=== PATIENT | female | born 1955 | race Caucasian/White ===

== ENCOUNTER 2022-07-16 19:03 | Inpatient (IN) ==
[2022-07-16] MEDS ORDERED: 0.9 % SODIUM CHLORIDE 1,000 ML IV ONE ×2 (19:07→20:01)
--- NOTE | 2022-07-16 19:57 | Emergency Department Note ---
Female Urogenital HPI General Chief complaint: Urogenital-Female Stated complaint: sepsis Source: patient Mode of arrival: wheelchair Limitations: no limitations History of Present Illness HPI Narrative: Narrative: Patient presents to the ED with complaints of not feeling well x2 days. She thinks that she has a urinary tract infection because the cell she felt the last time she had a urinary tract infection when she was sepsis. Patient reports she just feels off and dizzy disoriented. She states that she is having some visual hallucinations although she cannot describe to me she states that she just saying things are not really there. She states that she became dizzy and fell backwards last night she think she hit her head but cannot recall. She cannot tell me if she lost consciousness or not. She is not on any blood thinners. She does take lisinopril for hypertension. She reports decreased appetite and oral intake over the last couple days as well. She states that she had some chills. She denies fever, vomiting, hematemesis, cardiac chest pain, heart palpitation, shortness of breath, cough, sputum production, abdominal pain, diarrhea, dysuria, urinary frequency. She did state that she had a sudden urge to pee yesterday and peed on herself. She denies any back pain, bowel incontinence, extremity weakness or numbness. Patient denies any other alleviating or aggravating factors. Related Data Allergies Allergy/AdvReac Type Severity Reaction Status Date / Time hydromorphone [From Dilaudid] AdvReac Intermediate Confusion Verified 06/30/22 11:55 Review of Systems ROS ROS Narrative: Narrative: All systems ED: reviewed and negative except as stated. [facility] Narrative Patient History Narrative: Narrative: Medical/Surgical/Family History All Active Problems (Updated 07/16/22 @ 21:04 by Aditya Beltre DO) Chest pain (Acute) Hypertension (Acute) Lightheadedness (Acute) Acute dehydration (Acute) Acute UTI (Acute) Acute hypotension (Acute) Concussion (Acute) Social History Smoking Status: Never smoker Exam Narrative Narrative: Narrative: General Limitations: no limitations General appearance: Absent in distress Head Head: Present atraumatic and normocephalic Eye Eye: Present PERRL and EOMI ENT ENT: Present normal oropharynx and mucous membranes dry Neck Neck: Present normal inspection; Absent meningismus Respiratory Respiratory: Present normal lung sounds bilaterally; Absent respiratory distress Cardiovascular Cardiovascular: Present regular rate and normal rhythm Adbominal Abdominal: Present soft; Absent tenderness Extremities Extremities: Present normal capillary refill Back Back: Absent CVA tenderness (R) or CVA tenderness (L) Neurological Neurological: Present alert and oriented X3 Psychiatric Psychiatric: Present normal affect and normal mood Skin Skin: Present warm (WNL) and intact Course Course Course Narrative: Patient was evaluated for weakness and concerns of UTI. UA was dirty. Labs show that she had elevated white cell count, elevated lactic acid elevated procalcitonin she was hypotensive. Believe patient to be septic. She was given IV fluids and her blood pressure responded appropriately. Her lactic acid also trended down. Labs also show that she was dehydrated with elevated BUN and creatinine which would explain her hypotension. Patient also reported a fall with possible head trauma with headache so a CT of the head was obtained as well as cervical spine with image reviewed myself with no acute intracranial findings or bony abnormalities. Patient was able to ambulate but was a little bit unsteady on her feet. I believe patient would benefit from hospital admission. Case was discussed with hospitalist who has agreed to admit the patient. Plan of care was discussed with patient she expressed verbal understanding and agreement. Reevaluation(s) Reevaluation #1: Patient remains hemodynamically stable. No new complaints at this time. Time: 20:01 Consultations Consultation #1: Case discussed with hospitalist, , who has Jackie excepted to admit patient to the hospital. Time: 21:10 Vital Signs Vital signs: Vital Signs Temperature 97.0 F 07/16/22 19:03 Pulse Rate 59 L 07/16/22 19:03 Respiratory Rate 14 07/16/22 19:03 Blood Pressure 66/45 07/16/22 19:03 Pulse Oximetry (%) 100 07/16/22 19:03 Oxygen Delivery Method Room Air 07/16/22 19:03 Temperature 97.0 F 07/16/22 19:03 Pulse Rate 71 07/16/22 20:46 Respiratory Rate 11 L 07/16/22 20:46 Blood Pressure 108/58 07/16/22 20:46 Pulse Oximetry (%) 96 07/16/22 20:46 Oxygen Delivery Method Room Air 07/16/22 19:03 [facility] Narrative Medical decision making narrative: Narrative: Differential Diagnosis Differential Diagnosis: Sepsis, UTI, viral illness, hypotension, dehydration Medical Records Medical records reviewed: Yes I reviewed the patient's medical records. Lab Data Lab results reviewed: Yes I reviewed the patient's lab results. 07/16/22 19:30 Labs: Lab Results 07/16/22 07/16/22 07/16/22 Range/Units 19:30 19:30 19:35 WBC 11.9 H (4.5-11.0) K/mcL RBC 4.67 (3.59-5.38) M/mcL Hgb 14.4 (11.2-15.7) g/dL Hct 42.1 (34.1-44.9) % MCV 90.1 (80.0-100.0) fL MCH 30.8 (26.0-34.0) pg MCHC 34.2 (31.0-36.0) g/dL RDW 13.2 (11.5-14.5) % Plt Count 146 (140-440) K/mcL MPV 10.2 (8.8-12.5) fL Immature Gran % (Auto) 0.3 (0.0-0.5) % Neut % (Auto) 72.3 (38.0-78.0) % Lymph % (Auto) 15.6 (15.5-49.0) % [place] % (Auto) 11.4 (1.0-12.0) % Eos % (Auto) 0.2 (0.0-7.0) % Baso % (Auto) 0.2 (0.0-2.0) % Lymph # (Auto) 1.85 (1.50-4.80) K/mcL [place] # (Auto) 1.36 H (0.10-0.90) K/mcL Eos # (Auto) 0.02 (0.00-0.70) K/mcL Baso # (Auto) 0.02 (0.00-0.30) K/mcL Immature Gran # 0.04 (0.00-0.05) K/mcl Absolute Neutrophils 8.59 H (1.80-8.00) K/mcL Procalcitonin 0.65 H (<0.10) ng/mL Urine Color Savita Urine Appearance Hazy A (Clear) Urine pH 5.0 (5.0-9.0) Ur Specific [place] 1.016 (1.000-1.035) Urine Protein 30 A (Negative) mg/dL Urine Glucose (UA) Negative (Negative) mg/dL Urine Ketones Negative (Negative) mg/dL Urine Occult Blood 0.03 (Negative) mg/dL Urine Nitrate Negative (Negative) Urine Bilirubin Negative (Negative) mg/dL Urine Urobilinogen Negative mg/dL Ur Leukocyte Esterase 250 A (Negative) /uL Urine RBC 1 (0-3) /hpf Urine WBC 35 H (0-4) /hpf Ur Squamous Epith Cells 0 (0-4) /hpf Urine Bacteria Mod A (0) /hpf Hyaline Casts 25 H (0-2) /lph Urine Mucus Few A (None) /hpf Ur Culture Indicated? yes ED POC Tests ED POC Tests: ALCON - Influenza A Negative ALCON - Influenza B Negative ALCON - SARS Antigen Negative Radiology Data Radiology results reviewed: Yes I reviewed the patient's radiology results. Radiology results narrative: CT head cervical spine obtained with image reviewed myself, no acute findings Core Measures AMI Core Measures Followed: Yes Discharge Plan Patient/Caregiver Discharge Instructions Pt seen by TEACHING SUPERVISOR/PA only: No Clinical Impression: Acute dehydration, Acute UTI, Acute hypotension, Concussion Patient Disposition: Xfer As Outpt/Obs ([facility]) Condition: Fair Follow up with: Johanna Clay MD [Primary Care Provider] -
[2022-07-16 20:09] LABS: Basophils # (Auto) 0.02 K/mcL (0.00-0.30); Basophils % (Auto) 0.2 % (0.0-2.0); Eosinophils # (Auto) 0.02 K/mcL (0.00-0.70); Eosinophils % (Auto) 0.2 % (0.0-7.0); Hematocrit 42.1 % (34.1-44.9); Hemoglobin 14.4 g/dL (11.2-15.7); Lymphocytes # (Auto) 1.85 K/mcL (1.50-4.80); Lymphocytes % (Auto) 15.6 % (15.5-49.0); Mean Cell Volume 90.1 fL (80.0-100.0); Mean Corpuscular HGB Conc 34.2 g/dL (31.0-36.0); Mean Platelet Volume 10.2 fL (8.8-12.5); Monocytes # (Auto) 1.36 K/mcL (0.10-0.90); Monocytes % (Auto) 11.4 % (1.0-12.0); Neutrophils % (Auto) 72.3 % (38.0-78.0); Platelet Count 146 K/mcL (140-440); RBC 4.67 M/mcL (3.59-5.38); Red Cell Distribution Width 13.2 % (11.5-14.5); WBC 11.9 K/mcL (4.5-11.0)
[2022-07-16 20:23] LABS: Appearance,Urine HAZY (Clear); Bacteria,Urine MOD /hpf (0); Bilirubin,Urine Negative (Negative); Color,Urine AMBER; Culture Indicated,Urine yes; Glucose,Urine (UA) Negative (Negative); Ketones,Urine Negative (Negative); Leukocyte Esterase,Urine 250 /uL (Negative); Mucus,Urine FEW /hpf; Nitrate,Urine Negative (Negative); Protein,Urine 30 mg/dL (Negative); Specific Gravity,Urine 1.016 (1.000-1.035); Urine Blood 0.03 mg/dL (Negative); Urine Hyaline Cast 25 /lph (0-2); Urine RBC 1 /hpf (0-3); Urine Squamous Epithelial Cell 0 /hpf (0-4); Urine WBC 35 /hpf (0-4); Urobilinogen,Urine Negative
[2022-07-16] MEDS ORDERED: ACETAMINOPHEN 325 MG TABLET PO ONE (20:51)
[2022-07-16] MEDS ORDERED: KETOROLAC 30 MG/ML VIAL IV ONE (20:51)
[2022-07-16] MEDS ORDERED: cefTRIAXone 2 GM in DEXTROSE 5% IN WATER 50 ML IV ONE (20:51)
--- NOTE | 2022-07-16 21:19 | Internal Med History&Physical ---
HPI History of Present Illness Patient information: Note initiated : 07/16/22 at 9:09 pm Service Date, if different from initiated Date: [] Patient: Felecia Hameed a 66 y/o F admitted on for sepsis. Chief Complaint: [] History of present illness: Ms. Hameed is a 66 year old F Presents the ED by her friend found her disoriented incontinent and stated she was seeing things that were not there and stating she was septic. Patient does have history of UTIs. Patient says for the past 3 days she has been feeling ill weak tired dizzy. She been incontinent several times. She says last night she passed out. Patient states her urine has been malodorous. As well as complaint of headache fever and chills. She denies any nausea vomiting abdominal pain chest pain shortness of breath. In the ED if her blood pressure was 66/45. She had good oxygen saturations. She responded well to IV fluid bolus. UA was concerning for infection. Her first VBG showed a pH of 7.33 with a lactate of 2.9. Follow-up showed a VBG of 7.30 with a lactate of 1.2. C-spine and CT brain unremarkable. Patient given IV fluids and started on antibiotics in the ED. Review of Systems: Pertinent positives as above. Denies nausea/vomiting/chest or abdominal pain/cough/dyspnea/diarrhea. Remaining 10 point review of system reviewed negative PFSH PFSH All Active Problems (Updated 07/16/22 @ 21:04 by Aditya Beltre DO) Chest pain (Acute) Hypertension (Acute) Lightheadedness (Acute) Acute dehydration (Acute) Acute UTI (Acute) Acute hypotension (Acute) Concussion (Acute) Social History smoking status: Never smoker MEDS/ALLERGIES Home Medications and Allergies Allergies Allergy/AdvReac Type Severity Reaction Status Date / Time hydromorphone [From Dilaudid] AdvReac Intermediate Confusion Verified 06/30/22 11:55 EXAM Constitutional Vitals: Temp Pulse Resp BP Pulse Ox O2 Del Method 97.0 F 71 11 L 108/58 96 Room Air 07/16/22 19:03 07/16/22 20:46 07/16/22 20:46 07/16/22 20:46 07/16/22 20:46 07/16/22 19:03 Exam: General: Awake, No acute Distress Eyes/N/T: EOMI, PERRL, dry MM Head/Neck: neck supple, normocephalic atraumatic CV: RRR, No murmurs, normal s1/s2 Pulm: Clear b/l, no wheezing/rhonchi/rales Abd: soft, nontender, +BS x4 Ext: no clubbing/cyanosis/edema Neuro: Lethargic, no focal deficits, moves all extremities, CN 2-12 grossly intact, sensations intact b/l upper/lower, Answers questions appropriately. Skin: warm/dry DATA Data Completed and Pending Labs: Labs from last 24 hours 07/16/22 07/16/22 07/16/22 19:35 19:30 19:30 WBC 11.9 H RBC 4.67 Hgb 14.4 Hct 42.1 MCV 90.1 MCH 30.8 MCHC 34.2 RDW 13.2 Plt Count 146 MPV 10.2 Immature Gran % (Auto) 0.3 Neut % (Auto) 72.3 Lymph % (Auto) 15.6 [place] % (Auto) 11.4 Eos % (Auto) 0.2 Baso % (Auto) 0.2 Lymph # (Auto) 1.85 [place] # (Auto) 1.36 H Eos # (Auto) 0.02 Baso # (Auto) 0.02 Immature Gran # 0.04 Absolute Neutrophils 8.59 H Procalcitonin 0.65 H Urine Color Savita Urine Appearance Hazy A Urine pH 5.0 Ur Specific [place] 1.016 Urine Protein 30 A Urine Glucose (UA) Negative Urine Ketones Negative Urine Occult Blood 0.03 Urine Nitrate Negative Urine Bilirubin Negative Urine Urobilinogen Negative Ur Leukocyte Esterase 250 A Urine RBC 1 Urine WBC 35 H Ur Squamous Epith Cells 0 Urine Bacteria Mod A Hyaline Casts 25 H Urine Mucus Few A Ur Culture Indicated? yes A/P Narrative A/P Narrative: A: *UTI: *Severe sepsis w/hypotension: responded to IVF in ED *Lactic acidosis: *Encephalopathy with h/o MCI: 2/2 above *MCI: *DM2: *HTN/HLD: *Depression/PTSD: *Obesity: BMI 30 *GERD: *Chronic pain: On opioids. P: -IV ABX, pending BC/UC -Monitor vitals closely, BP, prn fluid boluses -Monitor I&O/uop, renal fxn -IVF -f/u cbc/chem, pct, lactate - -basal and SSI -hold home ACEI for hypotension -cont psych meds -Home medication reconciliation -PT/OT -CM for placement needs -ppx: Lovenox / ppi Time Spent With Patient Time: Total time spent is greater than 50% in coordination of care (as documented) at patient's floor/unit and/or counseling patient: Initial: Total time with patient: 75 - 90 minutes
[2022-07-16 22:14] LABS: Albumin 3.2 gm/dL (3.2-5.2); Bilirubin,Direct 0.2 mg/dL (<0.3); Bilirubin,Total 0.4 mg/dL (0.1-1.0); Globulin 2.7 gm/dL (2.2-3.7)
[2022-07-16] MEDS ORDERED: 0.9 % SODIUM CHLORIDE 1,000 ML IV SCH (23:04)
[2022-07-16] MEDS ORDERED: POTASSIUM CHLORIDE 20 MEQ TABLET PO PRN ×2 (23:04)
[2022-07-16] MEDS ORDERED: DEXTROSE 31 GM ORAL.SUSP PO PRN (23:04)
[2022-07-16] MEDS ORDERED: MAGNESIUM SULFATE 2 GM/50 ML BAG IV PRN (23:04)
[2022-07-16] MEDS ORDERED: IPRATROPIUM/ALBUTEROL 3 ML AMPUL.NEB NEB PRN (23:04)
[2022-07-16] MEDS ORDERED: DEXTROSE 50% 50 ML VIAL IV PRN (23:04)
[2022-07-16] MEDS ORDERED: POTASSIUM CHLORIDE 40 MEQ in DEXTROSE 5% IN WATER 500 ML IV PRN (23:04)
[2022-07-16] MEDS ORDERED: ONDANSETRON 4 MG/2 ML VIAL IV PRN (23:04)
[2022-07-16] MEDS ORDERED: SENNOSIDES 1 TABLET PO PRN (23:04)
[2022-07-16] MEDS ORDERED: ACETAMINOPHEN 325 MG TABLET PO PRN (23:04)
[2022-07-16] MEDS ORDERED: POLYETHYLENE GLYCOL 3350 17 GM PACKET PO PRN (23:04)
[2022-07-16] MEDS ORDERED: cefTRIAXone 1 GM in DEXTROSE 5% IN WATER 50 ML IV SCH (23:04)
[2022-07-16] MEDS: 0.9 % SODIUM CHLORIDE 10 ML SYRINGE IV SCH (23:14)
[2022-07-17] MEDS ORDERED: GABAPENTIN 100 MG CAPSULE PO ONE (00:36)
[2022-07-17] MEDS ORDERED: HYDROcodone/APAP 10/325MG TABLET PO ONE ×2 (00:37→01:04)
[2022-07-17] MEDS ORDERED: hydrOXYzine 10 MG TABLET PO ONE (00:38)
[2022-07-17] MEDS ORDERED: MONTELUKAST 10 MG TABLET PO ONE (00:43)
[2022-07-17] MEDS ORDERED: metFORMIN 500 MG TABLET PO ONE (00:43)
[2022-07-17] MEDS ORDERED: tiZANidine 4 MG TABLET PO ONE (00:44)
[2022-07-17] MEDS: GABAPENTIN 300 MG CAPSULE ONE ×2 (01:11→01:17)
--- NOTE | 2022-07-17 05:05 | Cat Scan Report ---
INDICATION: fall COMPARISON: None. TECHNIQUE: Axial noncontrast-enhanced images through the brain. Sagittally and coronally reformatted images. FINDINGS: Cerebral hemispheres:Negative. No intra-axial abnormality. No intra-axial hematoma. No localized mass effect.Brain volume is within normal limits for age. Periventricular white matter is negative without significant attenuation abnormality. Brainstem and cerebellum:No intra-axial abnormality Extra-axial:No acute hemorrhage. No subdural or epidural hematoma. No subarachnoid hemorrhage. Basilar cisterns are normal Calvarial:No calvarial fracture. No lytic lesion Temporal bones are negative. No destructive lesions Soft tissue, orbits, sinuses:Orbits and visualized facial soft tissues and paranasal sinuses are negative IMPRESSION: Negative post trauma noncontrast enhanced brain CT scan The exam was performed using radiation dose optimization techniques including, but not limited to, automated exposure control, adjustment of the mA and/or kV according to patient size and use of iterative reconstruction technique. Interpreted and Authenticated by: Reji Ortiz 07/17/22
--- NOTE | 2022-07-17 05:07 | Cat Scan Report ---
INDICATION: fall COMPARISON: None. TECHNIQUE: Axial thin section images through the cervical spine. Sagittally and coronally reformatted images. The exam was performed using radiation dose optimization techniques including, but not limited to, automated exposure control, adjustment of the mA and/or kV according to patient size and use of iterative reconstruction technique. FINDINGS: Examination was initially interpreted by [facility] Vertebral bodies, spinous processes:No vertebral body or spinous process fracture. No acute abnormality. Alignment is anatomic without anterolisthesis Normal odontoid process. No fracture. Occipital condyles and C1 are negative. No atlantoaxial subluxation. Facets:No perched or locked facet. No facet complex fracture. Disc spaces:Previous anterior discectomy and spinal fusion at C5-6. Normal alignment. Moderate to severe degenerative disc disease at C6-7. Temporal bones:Negative. No basilar skull fracture Cervical soft tissues:Negative. No prevertebral soft tissue swelling. No focal soft tissue mass or acute abnormality Lung apices:No pneumothorax. No pulmonary contusion. IMPRESSION: 1. Previous anterior discectomy and spinal fusion at C5-6. 2. No acute abnormality. No cervical spine fracture Interpreted and Authenticated by: Reji Ortiz 07/17/22
[2022-07-17] MEDS: INSULIN LISPRO 1 UNIT/0.01 ML UNIT SQ SCH ×4 (07:24→21:37)
[2022-07-17] MEDS: 0.9 % SODIUM CHLORIDE 10 ML SYRINGE IV SCH ×3 (07:24→21:48)
--- NOTE | 2022-07-17 07:29 | Internal Med Progress Note ---
SUBJECTIVE Subjective Patient information: Note initiated : 07/17/22 at 7:28 am Service Date, if different from initiated Date: [] Patient: Felecia Hameed 66 y/o F admitted on 07/16/22 for sepsis. Chief Complaint: [] Interval history: History of present illness: Ms. Hameed is a 66 year old F Presents the ED by her friend found her disoriented incontinent and stated she was seeing things that were not there and stating she was septic. Patient does have history of UTIs. Patient says for the past 3 days she has been feeling ill weak tired dizzy. She been incontinent several times. She says last night she passed out. Patient states her urine has been malodorous. As well as complaint of headache fever and chills. She denies any nausea vomiting abdominal pain chest pain shortness of breath. In the ED if her blood pressure was 66/45. She had good oxygen saturations. She responded well to IV fluid bolus. UA was concerning for infection. Her first VBG showed a pH of 7.33 with a lactate of 2.9. Follow-up showed a VBG of 7.30 with a lactate of 1.2. C-spine and CT brain unremarkable. Patient given IV fluidsand abx started in ED. 07/17 Patient seems to feel little bit better today.'s complaints of chills and headache. Leukocytosis improved. Chemistry pending. Pending urine culture Review of Systems: denies fever/nausea/vomiting/chest or abdominal pain/cough/dyspnea/diarrhea. Otherwise see above. Constitutional Vitals: Vital Signs Temp Pulse Resp BP Pulse Ox O2 Del Method O2 Flow Rate 97.2 F 63 14 128/72 96 Room Air 0 07/17/22 04:03 07/17/22 04:13 07/17/22 04:13 07/17/22 04:03 07/17/22 04:13 07/17/22 04:03 07/17/22 04:03 Period Temp Pulse Resp BP Sys/Judd Pulse Ox O2 Del Method O2 Flow Rate Last 24 Hr 97.0 F-98.2 F 59-73 5-15 66-130/45-75 90-100 Room Air-Room Air 0-0 Intake and Output 07/16/22 07/17/22 07/17/22 19:59 03:59 11:59 Intake Total 2049 Output Total 460 Balance 1590 Weight 72.575 kg 72.076 kg Intake & Output: Intake & Output 07/16/22 07/17/22 07/17/22 19:59 03:59 11:59 Intake Total 2049 Output Total 460 Balance 1590 Weight 72.575 kg 72.076 kg Intake: IV 2049 Sodium Chloride 0.9% 1,000 ml @ 2000 Wide Open IV BOLUS ONE Rx#: [id number] Rocephin 2 gm In Dextrose 5% in 50 Water 50 ml @ 100 mls/hr IV ONCE ONE Rx#:[id number] Output: Void Amount 460 Other: Meal snack Percent of Meal Consumed 100% Nourishment/Supplement name Yogurt, egg salad Urine Appearance Clear Urine Color Dark Yellow Urine Odor Strong Exam: General: Awake, No acute Distress Eyes/N/T: EOMI, Head/Neck: neck supple, CV: RRR, No murmurs, Pulm: Clear b/l, no wheezing/rhonchi/rales Abd: soft, nontender, +BS x4 Ext: no clubbing/cyanosis/edema Neuro: alert, no focal deficits, moves all extremities,questions appropriately. Skin: warm/dry OBJ DATA Labs 07/16/22 19:30 07/17/22 05:05 Labs: Abnormal Lab Results 07/16/22 07/16/22 07/16/22 21:09 21:07 19:35 WBC [place] # (Auto) Absolute Neutrophils POC VBG pH 7.30 L POC VBG HCO3 22.6 L POC VBG Total CO2 24.0 L POC VBG Base Excess -4.0 L AST 68 H ALT 79 H Procalcitonin Urine Appearance Hazy A Urine Protein 30 A Ur Leukocyte Esterase 250 A Urine WBC 35 H Urine Bacteria Mod A Hyaline Casts 25 H Urine Mucus Few A 07/16/22 07/16/22 19:30 19:30 WBC 11.9 H [place] # (Auto) 1.36 H Absolute Neutrophils 8.59 H POC VBG pH POC VBG HCO3 POC VBG Total CO2 POC VBG Base Excess AST ALT Procalcitonin 0.65 H Urine Appearance Urine Protein Ur Leukocyte Esterase Urine WBC Urine Bacteria Hyaline Casts Urine Mucus Meds: Medications Acetaminophen (Acetaminophen 325 Mg Tablet) 650 mg PO Q6HP PRN; Protocol PRN Reason: Per Pain Protocol/Fever > 101 Albuterol/Ipratropium (Ipratropium/Albuterol 3 Ml Ampul.Neb) 3 ml NEB Q4HP PRN PRN Reason: Shortness Of Breath Ceftriaxone Sodium (Ceftriaxone 1 Gm Vial) 1 gm IV Q24H [facility] Dextrose (Dextrose 50% 50 Ml Vial) 0 ml IV UD PRN PRN Reason: Per Sliding Scale Diagnostic Test (Pha) (Accu-Chek 1 Each Strip) [address] [facility] Last Admin: 07/17/22 07:24 Dose: 1 each Docusate Sodium (Docusate Sodium 100 Mg Capsule) 100 mg PO BID MARTHA Enoxaparin Sodium (Enoxaparin 40 Mg/0.4 Ml Syringe) 40 mg SQ DAILY [facility] Glucose (Dextrose 31 Gm Oral.Susp) 15 gm PO PRN PRN PRN Reason: Hypoglycemia Potassium Chloride 40 meq/ (Dextrose) 520 mls @ 130 mls/hr IV UD PRN PRN Reason: Potassium < 3 Magnesium Sulfate (Magnesium Sulfate) 2 gm in 50 mls @ 50 mls/hr IV UD PRN PRN Reason: Magnesium </= 1.6 Sodium Chloride (Sodium Chloride 0.9%) 1,000 mls @ 75 mls/hr IV .[id number] [facility] Stop: 07/17/22 12:23 Last Admin: 07/16/22 23:00 Dose: 75 mls/hr Insulin Human Lispro (Insulin Lispro 1 Unit/0.01 Ml Unit) [address] [facility]; Protocol Last Admin: 07/17/22 07:24 Dose: Not Given Ondansetron HCl (Ondansetron 4 Mg/2 Ml Vial) 4 mg IV Q4HP PRN PRN Reason: Nausea And Vomiting Polyethylene Glycol (Polyethylene Glycol 3350 17 Gm Packet) 17 gm PO DAILYP PRN PRN Reason: Constipation Potassium Chloride (Potassium Chloride 20 Meq Tablet) 40 meq PO UD PRN PRN Reason: Potssium is 3-3.5 Potassium Chloride (Potassium Chloride 20 Meq Tablet) 40 meq PO UD PRN PRN Reason: Potassium < 3 Senna (Sennosides 1 Tablet) 2 tab PO DAILYP PRN PRN Reason: Constipation Sodium Chloride (0.9 % Sodium Chloride 10 Ml Syringe) 10 ml IV Q8 [facility] Last Admin: 07/17/22 07:24 Dose: Not Given A/P Narrative A/P Narrative: A: *UTI( ): *Severe sepsis w/hypotension: responded to IVF in ED *Lactic acidosis: *TARA on likely CKDIII: *Encephalopathy with h/o MCI: 2/2 above, improved *MCI: *DM2: *HTN/HLD: *Depression/PTSD: *Obesity: BMI 30 *GERD: *Chronic back pain: On opioids. *Transaminitis, mild: P: -IV ABX, pending BC/UC -Monitor vitals closely, BP, prn fluid boluses -Monitor I&O/uop, renal fxn -IVF -f/u cbc/chem, pct, lactate -basal(decrease home dose today) and SSI -hold home ACEI for hypotension -cont psych meds -PT/OT -CM for placement needs -ppx: Lovenox / ppi Time Spent With Patient Time: Total time spent is greater than 50% in coordination of care (as documented) at patient's floor/unit and/or counseling patient: Subsequent: Total time with patient: 50 - 65 Minutes QUALITY VTE Deep Vein Thrombosis/Pulmonary Embolism Present on Admission: No
[2022-07-17] MEDS: GABAPENTIN 300 MG CAPSULE PO SCH ×2 (08:03→21:38)
[2022-07-17] MEDS: LISINOPRIL 2.5 MG TABLET PO SCH (08:03)
[2022-07-17] MEDS: tiZANidine 4 MG TABLET PO SCH ×3 (08:03→21:39)
[2022-07-17] MEDS: OMEPRAZOLE 20 MG CAPSULE PO SCH ×2 (08:04→16:51)
[2022-07-17] MEDS: ENOXAPARIN 40 MG/0.4 ML SYRINGE SQ SCH (08:04)
[2022-07-17 08:07] LABS: Basophils # (Auto) 0.02 K/mcL (0.00-0.30); Basophils % (Auto) 0.3 % (0.0-2.0); Eosinophils # (Auto) 0.13 K/mcL (0.00-0.70); Eosinophils % (Auto) 2.1 % (0.0-7.0); Hematocrit 37.9 % (34.1-44.9); Hemoglobin 12.5 g/dL (11.2-15.7); Lymphocytes # (Auto) 1.72 K/mcL (1.50-4.80); Lymphocytes % (Auto) 27.8 % (15.5-49.0); Mean Cell Volume 92.2 fL (80.0-100.0); Mean Platelet Volume 10.5 fL (8.8-12.5); Monocytes # (Auto) 0.84 K/mcL (0.10-0.90); Monocytes % (Auto) 13.6 % (1.0-12.0); Neutrophils % (Auto) 55.9 % (38.0-78.0); Platelet Count 116 K/mcL (140-440); RBC 4.11 M/mcL (3.59-5.38); Red Cell Distribution Width 13.3 % (11.5-14.5); WBC 6.2 K/mcL (4.5-11.0)
[2022-07-17] MEDS: DOCUSATE SODIUM 100 MG CAPSULE PO SCH ×2 (08:07→21:38)
[2022-07-17 08:54] LABS: ALT/SGPT 74 U/L (<40); AST/SGOT 62 U/L (<32); Albumin 3.2 gm/dL (3.2-5.2); Albumin/Globulin Ratio 1.1 (1.0-2.3); Alkaline Phosphatase 84 U/L (39-117); Bilirubin,Direct < 0.2 mg/dL (0-0.3); Bilirubin,Total 0.3 mg/dL (0.1-1.0); Blood Urea Nitrogen 26 mg/dL (8-23); Calcium 8.7 mg/dL (8.6-10.4); Carbon Dioxide 21 mmol/L (22-30); Chloride 104 mmol/L (96-108); Globulin 2.8 gm/dL (2.2-3.7); Glomerular Filtration Rate 43; Glucose 68 mg/dL (70-105); Lactate Dehydrogenase 226 U/L (135-225); Phosphorous 3.5 mg/dL (2.5-4.5); Triglycerides 145 mg/dL (<150); Uric Acid 6.8 mg/dL (2.5-8.0)
[2022-07-17] MEDS ORDERED: INSULIN GLARGINE, HUMAN 1 UNIT/0.01 ML SQ SCH (09:00)
[2022-07-17] MEDS: INSULIN GLARGINE, HUMAN 1 UNIT/0.01 ML SQ SCH ×2 (10:00→21:37)
[2022-07-17] MEDS: HYDROcodone/APAP 10/325MG TABLET PO PRN ×3 (12:25→21:38)
[2022-07-17] MEDS: cefTRIAXone 1 GM VIAL IV SCH (14:30)
[2022-07-17] MEDS: hydrOXYzine 25 MG TABLET PO PRN (18:42)
[2022-07-17] MEDS: MONTELUKAST 10 MG TABLET PO SCH (21:38)
[2022-07-18] MEDS: HYDROcodone/APAP 10/325MG TABLET PO PRN ×3 (04:28→21:29)
[2022-07-18] MEDS: OMEPRAZOLE 20 MG CAPSULE PO SCH ×2 (07:18→17:02)
[2022-07-18] MEDS: INSULIN LISPRO 1 UNIT/0.01 ML UNIT SQ SCH ×4 (07:18→21:38)
[2022-07-18] MEDS: 0.9 % SODIUM CHLORIDE 10 ML SYRINGE IV SCH ×3 (07:22→21:39)
--- NOTE | 2022-07-18 07:39 | Internal Med Progress Note ---
SUBJECTIVE Subjective Patient information: Note initiated : 07/18/22 at 7:38 am Service Date, if different from initiated Date: [] Patient: Felecia Hameed a 66 y/o F admitted on 07/16/22 for sepsis. Chief Complaint: [] Interval history: History of present illness: Ms. Hameed is a 66 year old F Presents the ED by her friend found her disoriented incontinent and stated she was seeing things that were not there and stating she was septic. Patient does have history of UTIs. Patient says for the past 3 days she has been feeling ill weak tired dizzy. She been incontinent several times. She says last night she passed out. Patient states her urine has been malodorous. As well as complaint of headache fever and chills. She denies any nausea vomiting abdominal pain chest pain shortness of breath. In the ED if her blood pressure was 66/45. She had good oxygen saturations. She responded well to IV fluid bolus. UA was concerning for infection. Her first VBG showed a pH of 7.33 with a lactate of 2.9. Follow-up showed a VBG of 7.30 with a lactate of 1.2. C-spine and CT brain unremarkable. Patient given IV fluidsand abx started in ED. 07/17 Patient seems to feel little bit better today.'s complaints of chills and headache. Leukocytosis improved. Chemistry pending. Pending urine culture 07/18 Patient feeling little better today. States she has not been up out of bed yet. Awaiting PT OT. Awaiting urine culture. Pending chemistry. Review of Systems: denies fever/nausea/vomiting/chest or abdominal pain/cough/dyspnea/diarrhea. Otherwise see above. Constitutional Vitals: Vital Signs Temp Pulse Resp BP Pulse Ox O2 Del Method O2 Flow Rate 98.9 F 72 18 157/74 94 Room Air 0 07/18/22 04:45 07/18/22 04:45 07/18/22 04:45 07/18/22 04:45 07/18/22 04:45 07/18/22 04:45 07/18/22 04:45 Period Temp Pulse Resp BP Sys/Judd Pulse Ox O2 Del Method O2 Flow Rate Last 24 Hr 98.0 F-98.9 F 63-73 10-20 111-157/55-92 94-98 Room Air-Room Air 0-0 Intake and Output 07/17/22 07/18/22 07/18/22 19:59 03:59 11:59 Intake Total 1720 Output Total 1550 700 900 Balance 170 -700 -900 Weight 72.076 kg 72.802 kg Intake & Output: Intake & Output 07/17/22 07/18/22 07/18/22 19:59 03:59 11:59 Intake Total 1720 Output Total 1550 700 900 Balance 170 -700 -900 Weight 72.076 kg 72.802 kg Intake: IV 1000 Sodium Chloride 0.9% 1,000 ml @ 1000 75 mls/hr IV .[id number] [facility] Rx#: [id number] Oral 720 Output: Void Amount 1550 700 900 Other: Meal Dinner Percent of Meal Consumed 100% Urine Appearance Clear Clear Clear Urine Color Dark Yellow Dark Yellow Yellow Exam: General: Awake, No acute Distress Eyes/N/T: EOMI, Head/Neck: neck supple, CV: RRR, No murmurs, Pulm: Clear b/l, no wheezing/rhonchi/rales Abd: soft, nontender, +BS x4 Ext: no clubbing/cyanosis/edema Neuro: alert, no focal deficits, moves all extremities,questions appropriately. Skin: warm/dry OBJ DATA Labs 07/17/22 05:05 07/17/22 05:05 Labs: Abnormal Lab Results 07/17/22 07/17/22 07/17/22 05:05 05:05 05:05 WBC Plt Count 116 L [place] % (Auto) 13.6 H [place] # (Auto) Absolute Neutrophils POC VBG pH POC VBG HCO3 POC VBG Total CO2 POC VBG Base Excess Carbon Dioxide 21 L BUN 26 H Creatinine 1.3 H Glucose 68 L GGT 281 H AST 62 H ALT 74 H Lactate Dehydrogenase 226 H Procalcitonin 0.43 H Urine Appearance Urine Protein Ur Leukocyte Esterase Urine WBC Urine Bacteria Hyaline Casts Urine Mucus 07/16/22 07/16/22 07/16/22 21:09 21:07 19:35 WBC Plt Count [place] % (Auto) [place] # (Auto) Absolute Neutrophils POC VBG pH 7.30 L POC VBG HCO3 22.6 L POC VBG Total CO2 24.0 L POC VBG Base Excess -4.0 L Carbon Dioxide BUN Creatinine Glucose GGT AST 68 H ALT 79 H Lactate Dehydrogenase Procalcitonin Urine Appearance Hazy A Urine Protein 30 A Ur Leukocyte Esterase 250 A Urine WBC 35 H Urine Bacteria Mod A Hyaline Casts 25 H Urine Mucus Few A 07/16/22 07/16/22 19:30 19:30 WBC 11.9 H Plt Count [place] % (Auto) [place] # (Auto) 1.36 H Absolute Neutrophils 8.59 H POC VBG pH POC VBG HCO3 POC VBG Total CO2 POC VBG Base Excess Carbon Dioxide BUN Creatinine Glucose GGT AST ALT Lactate Dehydrogenase Procalcitonin 0.65 H Urine Appearance Urine Protein Ur Leukocyte Esterase Urine WBC Urine Bacteria Hyaline Casts Urine Mucus Meds: Medications Acetaminophen (Acetaminophen 325 Mg Tablet) 650 mg PO Q6HP PRN; Protocol PRN Reason: Per Pain Protocol/Fever > 101 Last Admin: 07/17/22 07:43 Dose: 650 mg Hydrocodone Bitart/Acetaminophen (Hydrocodone/Apap 10/325mg Tablet) 1 tab PO Q4HP PRN; Protocol PRN Reason: Pain Last Admin: 07/18/22 04:28 Dose: 1 tab Albuterol/Ipratropium (Ipratropium/Albuterol 3 Ml Ampul.Neb) 3 ml NEB Q4HP PRN PRN Reason: Shortness Of Breath Ceftriaxone Sodium (Ceftriaxone 1 Gm Vial) 1 gm IV Q24H [facility] Last Admin: 07/17/22 14:30 Dose: 1 gm Dextrose (Dextrose 50% 50 Ml Vial) 0 ml IV UD PRN PRN Reason: Per Sliding Scale Diagnostic Test (Pha) (Accu-Chek 1 Each Strip) 1 each FS ACHS [facility] Last Admin: 07/18/22 07:18 Dose: 1 each Docusate Sodium (Docusate Sodium 100 Mg Capsule) 100 mg PO BID [facility] Last Admin: 07/17/22 21:38 Dose: 100 mg Enoxaparin Sodium (Enoxaparin 40 Mg/0.4 Ml Syringe) 40 mg SQ DAILY [facility] Last Admin: 07/17/22 08:04 Dose: 40 mg Gabapentin (Gabapentin 300 Mg Capsule) 900 mg PO BID [facility] Last Admin: 07/17/22 21:38 Dose: 900 mg Glucose (Dextrose 31 Gm Oral.Susp) 15 gm PO PRN PRN PRN Reason: Hypoglycemia Hydroxyzine HCl (Hydroxyzine 25 Mg Tablet) 50 mg PO Q6HP PRN PRN Reason: itch Last Admin: 07/17/22 18:42 Dose: 50 mg Potassium Chloride 40 meq/ (Dextrose) 520 mls @ 130 mls/hr IV UD PRN PRN Reason: Potassium < 3 Magnesium Sulfate (Magnesium Sulfate) 2 gm in 50 mls @ 50 mls/hr IV UD PRN PRN Reason: Magnesium </= 1.6 Insulin Glargine (Insulin Glargine, Human 1 Unit/0.01 Ml) 10 unit SQ BID [facility] Last Admin: 07/17/22 21:37 Dose: 10 units Insulin Human Lispro (Insulin Lispro 1 Unit/0.01 Ml Unit) 0 unit SQ ACHS [facility]; Protocol Last Admin: 07/18/22 07:18 Dose: Not Given Lisinopril (Lisinopril 2.5 Mg Tablet) 2.5 mg PO QDAY [facility] Last Admin: 07/17/22 08:03 Dose: 2.5 mg Montelukast Sodium (Montelukast 10 Mg Tablet) 10 mg PO QHS [facility] Last Admin: 07/17/22 21:38 Dose: 10 mg Omeprazole (Omeprazole 20 Mg Capsule) 20 mg PO BIDAC [facility] Last Admin: 07/18/22 07:18 Dose: 20 mg Ondansetron HCl (Ondansetron 4 Mg/2 Ml Vial) 4 mg IV Q4HP PRN PRN Reason: Nausea And Vomiting Polyethylene Glycol (Polyethylene Glycol 3350 17 Gm Packet) 17 gm PO DAILYP PRN PRN Reason: Constipation Potassium Chloride (Potassium Chloride 20 Meq Tablet) 40 meq PO UD PRN PRN Reason: Potssium is 3-3.5 Potassium Chloride (Potassium Chloride 20 Meq Tablet) 40 meq PO UD PRN PRN Reason: Potassium < 3 Senna (Sennosides 1 Tablet) 2 tab PO DAILYP PRN PRN Reason: Constipation Sodium Chloride (0.9 % Sodium Chloride 10 Ml Syringe) 10 ml IV Q8 [facility] Last Admin: 07/18/22 07:22 Dose: 10 ml Tizanidine HCl (Tizanidine 4 Mg Tablet) 6 mg PO TID [facility] Last Admin: 07/17/22 21:39 Dose: 6 mg A/P Narrative A/P Narrative: A: *UTI( ): *Severe sepsis w/hypotension: responded to IVF in ED *Lactic acidosis: resolved *TARA on likely CKDIII: improving *Encephalopathy with h/o MCI: 2/2 above, improved *MCI: *DM2: *HTN/HLD: *Depression/PTSD: *Obesity: BMI 30 *GERD: *Chronic back pain: On opioids. *Transaminitis, mild: improving P: -IV ABX, pending BC/UC -Monitor I&O/uop, renal fxn -IVF d/c -f/u cbc/chem, -basal(decreased home dose initially, titrate back up as able) and SSI -held home ACEI for hypotension and tara, now restart and increase -cont psych meds -PT/OT -CM for placement needs -ppx: Lovenox / ppi Time Spent With Patient Time: Total time spent is greater than 50% in coordination of care (as documented) at patient's floor/unit and/or counseling patient: Subsequent: Total time with patient: 50 - 65 Minutes QUALITY VTE Deep Vein Thrombosis/Pulmonary Embolism Present on Admission: No
[2022-07-18] MEDS: LISINOPRIL 2.5 MG TABLET PO SCH (09:25)
[2022-07-18] MEDS: GABAPENTIN 300 MG CAPSULE PO SCH ×2 (09:26→21:28)
[2022-07-18] MEDS: INSULIN GLARGINE, HUMAN 1 UNIT/0.01 ML SQ SCH ×2 (09:26→21:39)
[2022-07-18] MEDS: tiZANidine 4 MG TABLET PO SCH ×3 (09:26→21:28)
[2022-07-18] MEDS: DOCUSATE SODIUM 100 MG CAPSULE PO SCH ×2 (09:26→21:39)
[2022-07-18] MEDS: cefTRIAXone 1 GM VIAL IV SCH (09:35)
[2022-07-18] MEDS: ENOXAPARIN 40 MG/0.4 ML SYRINGE SQ SCH (09:35)
[2022-07-18] MEDS: hydrOXYzine 25 MG TABLET PO PRN ×2 (09:43→18:30)
[2022-07-18] MEDS ORDERED: LABETALOL 5 MG/ML ML IV PRN (09:58)
[2022-07-18] MEDS ORDERED: hydrALAZINE 20 MG/ML VIAL IV PRN (09:58)
[2022-07-18 10:00] LABS: ALT/SGPT 59 U/L (<40); AST/SGOT 35 U/L (<32); Albumin 3.5 gm/dL (3.2-5.2); Albumin/Globulin Ratio 1.2 (1.0-2.3); Alkaline Phosphatase 95 U/L (39-117); Bilirubin,Direct < 0.2 mg/dL (0-0.3); Bilirubin,Total 0.3 mg/dL (0.1-1.0); Blood Urea Nitrogen 18 mg/dL (8-23); Carbon Dioxide 23 mmol/L (22-30); Chloride 103 mmol/L (96-108); Glomerular Filtration Rate 66; Glucose 91 mg/dL (70-105); Lactate Dehydrogenase 220 U/L (135-225); Phosphorous 2.6 mg/dL (2.5-4.5); Triglycerides 171 mg/dL (<150); Uric Acid 5.6 mg/dL (2.5-8.0)
[2022-07-18] MEDS ORDERED: LISINOPRIL 5 MG TABLET PO ONE (10:14)
--- NOTE | 2022-07-18 12:32 | Internal Med Progress Note ---
SUBJECTIVE Subjective Patient information: Note initiated : 07/18/22 at 12:30 pm Service Date, if different from initiated Date: [] Patient: Felecia Hameed a 66 y/o F admitted on 07/16/22 for sepsis. Chief Complaint: [] Interval history: History of present illness: Ms. Hameed is a 66 year old F Presents the ED by her friend found her disoriented incontinent and stated she was seeing things that were not there and stating she was septic. Patient does have history of UTIs. Patient says for the past 3 days she has been feeling ill weak tired dizzy. She been incontinent several times. She says last night she passed out. Patient states her urine has been malodorous. As well as complaint of headache fever and chills. She denies any nausea vomiting abdominal pain chest pain shortness of breath. In the ED if her blood pressure was 66/45. She had good oxygen saturations. She responded well to IV fluid bolus. UA was concerning for infection. Her first VBG showed a pH of 7.33 with a lactate of 2.9. Follow-up showed a VBG of 7.30 with a lactate of 1.2. C-spine and CT brain unremarkable. Patient given IV fluidsand abx started in ED. 07/17 Patient seems to feel little bit better today.'s complaints of chills and headache. Leukocytosis improved. Chemistry pending. Pending urine culture 07/18 Patient feeling little better today. States she has not been up out of bed yet. Awaiting PT OT. Awaiting urine culture. Pending chemistry. 07/19 Physical exam Head: Atraumatic, normal inspection. Eyes: normal appearance, no scleral icterus. Neck: full ROM Respiratory: no respiratory distress. Cardiovascular: normal rate and rhythm, S1, S2. GI/Abdominal: soft, nontender, no guarding. Extremities: full range of motion, nontender. Neurological: CN II-XII intact, intact motor, intact sensation. Psychiatric: normal mood. Skin: warm, normal color Constitutional Vitals: Vital Signs Temp Pulse Resp BP Pulse Ox O2 Del Method O2 Flow Rate 97.4 F 71 16 178/72 97 Room Air 0 07/18/22 07:41 07/18/22 07:41 07/18/22 07:41 07/18/22 07:41 07/18/22 07:41 07/18/22 07:41 07/18/22 04:45 Period Temp Pulse Resp BP Sys/Judd Pulse Ox O2 Del Method O2 Flow Rate Last 24 Hr 97.4 F-98.9 F 63-73 16-20 111-178/55-77 94-97 Room Air-Room Air 0-0 Intake and Output 07/18/22 07/18/22 07/18/22 03:59 11:59 19:59 Intake Total 120 Output Total 700 1300 Balance -700 -1180 Weight 72.802 kg Intake & Output: Intake & Output 07/18/22 07/18/22 07/18/22 03:59 11:59 19:59 Intake Total 120 Output Total 700 1300 Balance -700 -1180 Weight 72.802 kg Intake: Oral 120 Output: Void Amount 700 1300 Other: Meal Breakfast Percent of Meal Consumed 75% Feeding Ability Independent Urine Appearance Clear Clear Urine Color Dark Yellow Yellow OBJ DATA Labs 07/17/22 05:05 07/18/22 07:48 Labs: Abnormal Lab Results 07/18/22 07/17/22 07/17/22 07:48 05:05 05:05 WBC Plt Count [place] % (Auto) [place] # (Auto) Absolute Neutrophils POC VBG pH POC VBG HCO3 POC VBG Total CO2 POC VBG Base Excess Carbon Dioxide 21 L BUN 26 H Creatinine 1.3 H Glucose 68 L GGT 306 H 281 H AST 35 H 62 H ALT 59 H 74 H Lactate Dehydrogenase 226 H Triglycerides 171 H Procalcitonin 0.43 H Urine Appearance Urine Protein Ur Leukocyte Esterase Urine WBC Urine Bacteria Hyaline Casts Urine Mucus 07/17/22 07/16/22 07/16/22 05:05 21:09 21:07 WBC Plt Count 116 L [place] % (Auto) 13.6 H [place] # (Auto) Absolute Neutrophils POC VBG pH 7.30 L POC VBG HCO3 22.6 L POC VBG Total CO2 24.0 L POC VBG Base Excess -4.0 L Carbon Dioxide BUN Creatinine Glucose GGT AST 68 H ALT 79 H Lactate Dehydrogenase Triglycerides Procalcitonin Urine Appearance Urine Protein Ur Leukocyte Esterase Urine WBC Urine Bacteria Hyaline Casts Urine Mucus 07/16/22 07/16/22 07/16/22 19:35 19:30 19:30 WBC 11.9 H Plt Count [place] % (Auto) [place] # (Auto) 1.36 H Absolute Neutrophils 8.59 H POC VBG pH POC VBG HCO3 POC VBG Total CO2 POC VBG Base Excess Carbon Dioxide BUN Creatinine Glucose GGT AST ALT Lactate Dehydrogenase Triglycerides Procalcitonin 0.65 H Urine Appearance Hazy A Urine Protein 30 A Ur Leukocyte Esterase 250 A Urine WBC 35 H Urine Bacteria Mod A Hyaline Casts 25 H Urine Mucus Few A Meds: Medications Acetaminophen (Acetaminophen 325 Mg Tablet) 650 mg PO Q6HP PRN; Protocol PRN Reason: Per Pain Protocol/Fever > 101 Last Admin: 07/17/22 07:43 Dose: 650 mg Hydrocodone Bitart/Acetaminophen (Hydrocodone/Apap 10/325mg Tablet) 1 tab PO Q4HP PRN; Protocol PRN Reason: Pain Last Admin: 07/18/22 04:28 Dose: 1 tab Albuterol/Ipratropium (Ipratropium/Albuterol 3 Ml Ampul.Neb) 3 ml NEB Q4HP PRN PRN Reason: Shortness Of Breath Ceftriaxone Sodium (Ceftriaxone 1 Gm Vial) 1 gm IV Q24H [facility] Last Admin: 07/18/22 09:35 Dose: 1 gm Dextrose (Dextrose 50% 50 Ml Vial) 0 ml IV UD PRN PRN Reason: Per Sliding Scale Diagnostic Test (Pha) (Accu-Chek 1 Each Strip) 1 each FS ACHS [facility] Last Admin: 07/18/22 11:09 Dose: 1 each Docusate Sodium (Docusate Sodium 100 Mg Capsule) 100 mg PO BID [facility] Last Admin: 07/18/22 09:26 Dose: 100 mg Enoxaparin Sodium (Enoxaparin 40 Mg/0.4 Ml Syringe) 40 mg SQ DAILY [facility] Last Admin: 07/18/22 09:35 Dose: 40 mg Gabapentin (Gabapentin 300 Mg Capsule) 900 mg PO BID [facility] Last Admin: 07/18/22 09:26 Dose: 900 mg Glucose (Dextrose 31 Gm Oral.Susp) 15 gm PO PRN PRN PRN Reason: Hypoglycemia Hydralazine HCl (Hydralazine 20 Mg/Ml Vial) 0 mg IV Q2HP PRN PRN Reason: Hypertension Hydroxyzine HCl (Hydroxyzine 25 Mg Tablet) 50 mg PO Q6HP PRN PRN Reason: itch Last Admin: 07/18/22 09:43 Dose: 50 mg Potassium Chloride 40 meq/ (Dextrose) 520 mls @ 130 mls/hr IV UD PRN PRN Reason: Potassium < 3 Magnesium Sulfate (Magnesium Sulfate) 2 gm in 50 mls @ 50 mls/hr IV UD PRN PRN Reason: Magnesium </= 1.6 Insulin Glargine (Insulin Glargine, Human 1 Unit/0.01 Ml) 10 unit SQ BID [facility] Last Admin: 07/18/22 09:26 Dose: 10 units Insulin Human Lispro (Insulin Lispro 1 Unit/0.01 Ml Unit) 0 unit SQ ACHS [facility]; Protocol Last Admin: 07/18/22 11:12 Dose: 6 units Labetalol HCl (Labetalol 5 Mg/Ml Ml) 0 mg IV Q2HP PRN PRN Reason: Hypertension Lisinopril (Lisinopril 10 Mg Tablet) 10 mg PO DAILY [facility] Montelukast Sodium (Montelukast 10 Mg Tablet) 10 mg PO QHS [facility] Last Admin: 07/17/22 21:38 Dose: 10 mg Omeprazole (Omeprazole 20 Mg Capsule) 20 mg PO BIDAC [facility] Last Admin: 07/18/22 07:18 Dose: 20 mg Ondansetron HCl (Ondansetron 4 Mg/2 Ml Vial) 4 mg IV Q4HP PRN PRN Reason: Nausea And Vomiting Polyethylene Glycol (Polyethylene Glycol 3350 17 Gm Packet) 17 gm PO DAILYP PRN PRN Reason: Constipation Potassium Chloride (Potassium Chloride 20 Meq Tablet) 40 meq PO UD PRN PRN Reason: Potssium is 3-3.5 Potassium Chloride (Potassium Chloride 20 Meq Tablet) 40 meq PO UD PRN PRN Reason: Potassium < 3 Senna (Sennosides 1 Tablet) 2 tab PO DAILYP PRN PRN Reason: Constipation Sodium Chloride (0.9 % Sodium Chloride 10 Ml Syringe) 10 ml IV Q8 [facility] Last Admin: 07/18/22 07:22 Dose: 10 ml Tizanidine HCl (Tizanidine 4 Mg Tablet) 6 mg PO TID [facility] Last Admin: 07/18/22 09:26 Dose: 6 mg A/P Narrative A/P Narrative: Assessment: 66-year-old female with multiple comorbidities per below admitted to the hospital for severe sepsis secondary to UTI and complicated by acute on chronic kidney disease injury, metabolic encephalopathy secondary to sepsis, and mild transaminitis. Sepsis physiology has improved. *UTI( ): *Severe sepsis w/hypotension: responded to IVF in ED *Lactic acidosis: resolved *TARA on likely CKDIII: improving *Encephalopathy with h/o MCI: 2/2 above, improved *MCI: *DM2: *HTN/HLD: *Depression/PTSD: *Obesity: BMI 30 *GERD: *Chronic back pain: On opioids. *Transaminitis, mild: improving P: -IV ABX, pending BC/UC -Monitor I&O/uop, renal fxn -IVF d/c -f/u cbc/chem, -basal(decreased home dose initially, titrate back up as able) and SSI -held home ACEI for hypotension and tara, now restart and increase -cont psych meds -PT/OT -CM for placement needs -ppx: Lovenox / ppi Time Spent With Patient Time: Total time spent is greater than 50% in coordination of care (as documented) at patient's floor/unit and/or counseling patient: QUALITY VTE Deep Vein Thrombosis/Pulmonary Embolism Present on Admission: No
[2022-07-18] MEDS: MONTELUKAST 10 MG TABLET PO SCH (21:28)
[2022-07-19] MEDS: 0.9 % SODIUM CHLORIDE 10 ML SYRINGE IV SCH (06:24)
[2022-07-19] MEDS: INSULIN LISPRO 1 UNIT/0.01 ML UNIT SQ SCH ×2 (07:30→11:36)
[2022-07-19] MEDS: OMEPRAZOLE 20 MG CAPSULE PO SCH (07:31)
[2022-07-19] MEDS: HYDROcodone/APAP 10/325MG TABLET PO PRN (07:31)
--- NOTE | 2022-07-19 07:45 | Discharge Summary ---
Discharge Provider Provider IMPORTANT FOLLOW-UP INFORMATION FOR PCP: Patient information: Note initiated : 07/19/22 at 7:42 am Service Date, if different from initiated Date: [] Patient: Felecia Hameed a 66 y/o F admitted on 07/16/22 for sepsis. Chief Complaint: [] Date of admission: 07/16/22 22:32 Discharge date: 07/19/22 Primary care physician: Johanna Clay Consults: 07/16/22 Consult to Physician [CONS] Stat Comment: Consulting Provider: Martin Rubin Reason For Exam: Physician to Consult COURSE Hospital Course Hospital course: Ms. Hameed is a 66 year old F Presents the ED by her friend found her disoriented incontinent and stated she was seeing things that were not there and stating she was septic. Patient does have history of UTIs. Patient says for the past 3 days she has been feeling ill weak tired dizzy. She been incontinent several times. She says last night she passed out. Patient states her urine has been malodorous. As well as complaint of headache fever and chills. She denies any nausea vomiting abdominal pain chest pain shortness of breath. In the ED if her blood pressure was 66/45. She had good oxygen saturations. She responded well to IV fluid bolus. UA was concerning for infection. Her first VBG showed a pH of 7.33 with a lactate of 2.9. Follow-up showed a VBG of 7.30 with a lactate of 1.2. C-spine and CT brain unremarkable. Patient given IV fluidsand abx started in ED. 07/17 Patient seems to feel little bit better today.'s complaints of chills and headache. Leukocytosis improved. Chemistry pending. Pending urine culture 07/18 Patient feeling little better today. States she has not been up out of bed yet. Awaiting PT OT. Awaiting urine culture. Pending chemistry. 07/19 The patient is stable, feeling much better than upon admission. Urine culture still pending, blood culture showing no growth after 48 hours. Labs show resolution of TARA. The patient is ambulating in the halls independently and does not require any assistance with activities of daily living. Discharge to home, 5 more days of cefdinir to complete about 7 days of antibiotic treatment for UTI. Physical exam Head: Atraumatic, normal inspection. Eyes: normal appearance, no scleral icterus. Neck: full ROM Respiratory: no respiratory distress. Cardiovascular: normal rate and rhythm, S1, S2. GI/Abdominal: soft, nontender, no guarding. Extremities: full range of motion, nontender. Neurological: CN II-XII intact, intact motor, intact sensation. Psychiatric: normal mood. Skin: warm, normal color Discharge diagnosis: Severe sepsis secondary to urinary tract infection Secondary discharge diagnosis: Acute kidney injury Metabolic encephalopathy Time Spent with Patient Time attestation: Total time spent providing and/or coordinating discharge services: Time spent: Less than 30 minutes EXAM Constitutional Vitals: Temp Pulse Resp BP Pulse Ox O2 Del Method O2 Flow Rate 98.2 F 66 20 140/84 94 Room Air 0 07/19/22 04:26 07/19/22 04:26 07/18/22 23:34 07/19/22 04:26 07/19/22 04:26 07/19/22 04:26 07/19/22 04:26 Discharge Data Data Completed and Pending Labs on day of discharge: Labs from last 24 hours 07/18/22 07:48 Sodium 136 Potassium 4.4 Chloride 103 Carbon Dioxide 23 Anion Gap 10.0 BUN 18 Creatinine 0.9 GFR Calculation 66 Glucose 91 Uric Acid 5.6 Calcium 9.0 Phosphorus 2.6 Magnesium 1.7 Total Bilirubin 0.3 Direct Bilirubin < 0.2 GGT 306 H AST 35 H ALT 59 H Alkaline Phosphatase 95 Lactate Dehydrogenase 220 Total Protein 6.5 Albumin 3.5 Globulin 3.0 Albumin/Globulin Ratio 1.2 Triglycerides 171 H Preliminary micro results at discharge 07/16/22 21:00 Blood Culture - Preliminary Blood 07/16/22 20:55 Blood Culture - Preliminary Blood 07/16/22 19:35 Urine Culture - Preliminary Urine - Clean Void Mid-Stream Discharge Plan Patient/Caregiver Discharge Instructions Activity: increase activity as tolerated Diet: Consistent Carbohydrate Prescriptions: New cefdinir 300 mg capsule 300 mg PO BID 5 Days Qty: 10 0RF Continued tizanidine 4 mg tablet 6 mg PO TID hydroxyzine HCl 50 mg tablet 50 mg PO Q6HP PRN (Reason: itch) hydrocodone-acetaminophen 10-325 mg tablet 1 tab PO Q4HP PRN (Reason: Pain) gabapentin 300 mg capsule 900 mg PO BID omeprazole 20 mg capsule,delayed release(DR/EC) 20 mg PO BID montelukast 10 mg tablet 10 mg PO QHS metformin 500 mg tablet extended release 24 hr 500 mg PO BID lisinopril 2.5 mg tablet 2.5 mg PO QDAY insulin glargine [Lantus Solostar U-100 Insulin] 100 unit/mL (3 mL) insulin pen 20 unit subcut BID insulin lispro [Humalog U-100 Insulin] 100 unit/mL solution 10 unit subcut TID insulin lispro [Humalog U-100 Insulin] 100 unit/mL solution 15 unit subcut BID Follow Up Plan Follow up with: Johanna Clay MD [Primary Care Provider] - Patient Disposition: Home, Self-Care Prognosis: Fair Overall status at discharge: patient is progressing back to baseline Discharge Orders: Discharge Order (Routine); Ordered 07/19/22 Ordered By: Pramod VELASQUEZ VTE Deep Vein Thrombosis/Pulmonary Embolism Present on Admission: No
[2022-07-19] MEDS: DOCUSATE SODIUM 100 MG CAPSULE PO SCH (08:25)
[2022-07-19] MEDS: ENOXAPARIN 40 MG/0.4 ML SYRINGE SQ SCH (08:26)
[2022-07-19] MEDS: GABAPENTIN 300 MG CAPSULE PO SCH (08:26)
[2022-07-19] MEDS: INSULIN GLARGINE, HUMAN 1 UNIT/0.01 ML SQ SCH (08:26)
[2022-07-19] MEDS: tiZANidine 4 MG TABLET PO SCH (08:27)
[2022-07-19] MEDS: cefTRIAXone 1 GM VIAL IV SCH (08:30)
[2022-07-19 08:43] LABS: POC Calcium, Ionized 1.18 (1.16-1.32); POC Creatinine 1.8 (0.6-1.2); POC Potassium 4.3 (3.3-5.1)
[2022-07-19] MEDS ORDERED: LISINOPRIL 10 MG TABLET PO SCH (09:00)
== END 2022-07-19 12:08 | disposition home or self-care (01) | DRG 871 ==
LOC: ED 19:03 → ICU 22:32
PROVIDERS: ADMIT Internal Medicine; ATTEND Internal Medicine